=== PATIENT | female | born 1955 | race Caucasian/White ===

== ENCOUNTER 2021-06-28 12:11 | Emergency (ER) | payer OTHER ==
[~2021-06-28] VITALS: Ht 170.2 cm; Wt 75.0 kg
[2021-06-28] MEDS ORDERED: GABA-1171 PO (12:30)
[2021-06-28] MEDS ORDERED: FLUTISP NARES (12:30)
[2021-06-28] MEDS ORDERED: PRAV80TA2 PO (12:30)
[2021-06-28] MEDS ORDERED: OMEP-173 PO (12:30)
[2021-06-28] MEDS ORDERED: SUMA50TA2 PO (12:30)
[2021-06-28] MEDS ORDERED: ACETAMINOPHEN 325 MG TAB PO ONE (13:20)
[2021-06-28 14:06] VITALS: BP 149/81
== END 2021-06-28 14:08 | disposition home or self-care (01) ==
LOC: M ED 12:11
DX: M25.512 Pain in left shoulder (principal); M54.50 Low back pain, unspecified; Z96.653 Presence of artificial knee joint, bilateral; V49.50XA Passenger injured in collision with unspecified motor vehicles in traffic accident, initial encounter; M89.8X8 Other specified disorders of bone, other site; Y92.9 Unspecified place or not applicable; Y93.9 Activity, unspecified; Y99.9 Unspecified external cause status